=== PATIENT | male | born 1985 | race American Indian/Alaskan Native ===

== ENCOUNTER 2017-08-19 22:46 | Emergency (ER) | payer BC, OTHER ==
[2017-08-20 00:08] VITALS: BP 158/107
--- NOTE | 2017-08-20 00:41 | EDM.PDOC ---
ED HPI GENERAL MEDICAL PROBLEM - General Chief Complaint: Bite:Animal, Insect Stated Complaint: SPIDER BITE ON ARM [id number] Time Seen by Provider: 08/20/17 00:30 Source of Information: Reports: Patient History Limitations: Reports: No Limitations - History of Present Illness INITIAL COMMENTS - FREE TEXT/NARRATIVE: sore on right upper arm for past 2 days, increased redness, swelling and pain tonight. Has not been draining. No fever or chills. No hx of skin infections in past. Treatments CREAM TESTER: Reports: Dressing(s), Other Medication(s) Right Arm Pain Score (Numeric/FACES): 7 - Related Data Allergies Allergy/AdvReac Type Severity Reaction Status Date / Time latex Allergy Mild Itching Verified 08/20/17 00:07 Home Meds: Home Meds Aspirin 650 mg PO BID PRN 03/27/13 [History] Past Medical History - Past Health History Medical/Surgical History: Denies Medical/Surgical History - Past Surgical History Other Neurological Surgeries/Procedures: age 14 Social & Family History - Tobacco Use Smoking Status *Q: Current Every Day Smoker Years of Tobacco use: 20 Packs/Tins Daily: 4 - Caffeine Use Caffeine Use: Reports: Coffee, Soda - Recreational Drug Use Recreational Drug Use: No - Living Situation & Occupation Living situation: Reports: with Family Occupation: Employed ED ROS GENERAL - Review of Systems Review Of Systems: See Below Constitutional: Denies: Fever, Chills HEENT: Reports: No Symptoms Respiratory: Reports: No Symptoms Cardiovascular: Reports: No Symptoms GI/Abdominal: Reports: No Symptoms Musculoskeletal: Reports: Arm Pain (right ). Denies: Hand Pain Skin: Reports: Erythema, Lumps (right uper inner arm) ED EXAM, ANIMAL BITE - Physical Exam Exam: See Below Exam Limited By: No Limitations General Appearance: Alert, Mild Distress Eye Exam: Bilateral Eye: EOMI Ears: Normal External Exam Nose: Normal Inspection Throat/Mouth: Normal Inspection Head: Atraumatic, Normocephalic Neck: Normal Inspection Respiratory/Chest: No Respiratory Distress, Lungs Clear, No Accessory Muscle Use Cardiovascular: Normal Peripheral Pulses, Regular Rate, Rhythm GI/Abdominal: Normal Bowel Sounds Extremities: Increased Warmth, Redness (5x5 cm area of redness central induration few white papules, no active drainage. tender to plapation. ) ED ANIMAL BITE PROCEDURES - I&D Skin Prep: Chlorhexidine (Hibiciens), Providone-Iodine (Betadine) Area Incised With: Needle Drainage: Bloody, Small Amount Sterile Dressinx4(s) Complications: No Course - Vital Signs Last Recorded V/S: Last Vital Signs Temp 97.6 F 08/20/17 00:06 Pulse 70 08/20/17 00:06 Resp 18 08/20/17 00:06 BP 158/107 H 08/20/17 00:06 Pulse Ox 100 08/20/17 00:06 - Orders/Labs/Meds Orders: Active Orders 24 hr Category Date Time Status CULTURE WOUND [RM] Stat Lab 08/20/17 00:45 Received Meds: Medications Discontinued Medications Generic Name Dose Route Start Last Admin Trade Name Génesis PRN Reason Stop Dose Admin Doxycycline Hyclate 100 mg 08/20/17 00:45 08/20/17 00:54 Vibramycin PO 08/20/17 00:46 100 mg ONETIME ONE Administration Departure - Departure Time of Disposition: 00:45 Disposition: Home, Self-Care 01 Condition: Good Clinical Impression: Cellulitis Qualifiers: Site of cellulitis: extremity Site of cellulitis of extremity: upper extremity Laterality: right Qualified Code(s): L03.113 - Cellulitis of right upper limb - Discharge Information Instructions: Cellulitis, Adult, [id number] Referrals: PCP,Unobtain [Primary Care Provider] - Forms: ED Department Discharge Additional Instructions: warm pack to area 3 times daily keep area covered alternate tylenol and ibuprofen for fever discomfort doxycycline 100mg one twice daily for 10 days follow up Thursday if not improving - My Orders Last 24 Hours: My Active Orders 08/20/17 00:45 CULTURE WOUND [RM] Stat - Assessment/Plan Last 24 Hours: My Active Orders 08/20/17 00:45 CULTURE WOUND [RM] Stat
[2017-08-20] MEDS ORDERED: Doxycycline 100 MG Cap PO ONE (00:45)
== END 2017-08-20 00:55 | disposition home or self-care (01) ==
LOC: DL.ED 22:46
DX: L03.113 Cellulitis of right upper limb (principal); F17.210 Nicotine dependence, cigarettes, uncomplicated; Z91.040 Latex allergy status
CPT/HCPCS: 10060; 87070; 87077; 87186; 99283; A9270